=== PATIENT | female | born 1935 | race African-American/Black ===

== ENCOUNTER 2018-04-27 17:50 | Inpatient (IN) ==
[2018-04-27] MEDS ORDERED: diphenhydrAMINE CAP 25 MG CAPSULE PO PRN (20:25)
[2018-04-27] MEDS ORDERED: guaiFENesin/DM ER 600-30 MG TABLET PO PRN (20:25)
[2018-04-27] MEDS ORDERED: ONDANSETRON 4 MG/2 ML VIAL IV PRN (20:25)
[2018-04-27] MEDS ORDERED: ALBUTEROL 2.5 MG/3 ML NEB RESP TX PRN (20:25)
[2018-04-27] MEDS ORDERED: MORPHINE 4 MG/1 ML VIAL IV PRN (20:25)
[2018-04-27] MEDS ORDERED: DOCUSATE SODIUM 100 MG CAPSULE PO PRN (20:25)
[2018-04-27] MEDS ORDERED: ACETAMINOPHEN 325 MG TABLET PO PRN (20:25)
[2018-04-27] MEDS ORDERED: methylPREDNISolone SOD SUC 125 MG/2 ML VIAL IV SCH (21:00)
[2018-04-28] MEDS: SODIUM CHLORIDE 0.9% 1,000 ML IV SCH ×2 (01:03→11:17)
[2018-04-28] MEDS: MONTELUKAST 10 MG TABLET PO SCH ×2 (01:05→21:23)
[2018-04-28] MEDS: BUDESONIDE/FORMOTEROL 160-4.5 INHALER 6 GM INH SCH ×3 (01:06→21:29)
[2018-04-28 06:49] LABS: Hematocrit 28.8 VOL% (35.7-47.0); Hemoglobin 9.3 GM/DL (12.0-16.0); Immature Granulocytes % 0.3 %; Immature Granulocytes Absolute 0.01 #; Lymphocytes # 0.7 10*3/uL (1.4-4.0); Lymphocytes % 19.3 % (21.3-54.2); Mean Corpuscular HGB Conc 32.3 GM/DL (32-36); Mean Corpuscular Hemoglobin 30 PG (27-34); Mean Corpuscular Volume 94.1 FL (87-102); Monocytes % 1.1 % (1.7-12.7); Neutrophils % 79.3 % (38.7-73.9); Platelet Count 185 T/CUMM (130-400); Red Blood Count 3.06 MC/CUMM (3.8-5.5); Red Cell Distribution Width 12.9 % (9.3-17.3); White Blood Count 3.8 T/CUMM (4-12)
[2018-04-28 07:15] LABS: Lymphocytes 22 % (20-55); Platelet Estimate Normal; Segmented Neutrophils 78 % (50-85); Total Cells Counted 100
[2018-04-28 07:23] LABS: Calcium 8.6 MG/DL (8.5-10.1); Osmolality,Calculated 287.4 MOS/KG (273-304); Risk Ratio 1.74; Thyroid Stimulating Hormone 0.873 uIU/ml (0.358-3.74); VLDL CHOLESTEROL 7.2 MG/DL
[2018-04-28] MEDS ORDERED: PANTOPRAZOLE 40 MG TABLET PO SCH (09:00)
[2018-04-28] MEDS: amLODIPine 5 MG TABLET PO SCH (09:44)
[2018-04-28] MEDS: ENOXAPARIN 30 MG/0.3 ML SYRINGE SUBCUT SCH (09:44)
[2018-04-28] MEDS: methylPREDNISolone SOD SUC 125 MG/2 ML VIAL IV SCH ×4 (09:45→21:23)
[2018-04-28] MEDS ORDERED: LOSARTAN 50 MG TABLET PO SCH (10:30)
[2018-04-28] MEDS: MINOXIDIL 10 MG TABLET PO SCH (13:03)
[2018-04-28] MEDS: CARVEDILOL 12.5 MG TABLET PO SCH ×2 (13:03→21:23)
[2018-04-28] MEDS: ATORVASTATIN 20 MG TABLET PO SCH (13:03)
[2018-04-28] MEDS: PANTOPRAZOLE 40 MG TABLET PO SCH (13:04)
[2018-04-28] MEDS: amLODIPine 10 MG TABLET PO SCH (13:05)
[2018-04-29] MEDS: methylPREDNISolone SOD SUC 125 MG/2 ML VIAL IV SCH ×4 (02:48→20:12)
[2018-04-29 03:11] LABS: ABG Base Excess -7.2 MMOL/L (-2.5-2.5); ABG HCO3 18.5 MMOL/L (20-26); ABG Oxygen Saturation 97.4 % (95-100); ABG PCO2 35.6 MM HG (35-48); ABG PH 7.318 (7.35-7.45); ABG PO2 96.3 MM HG (80-95); ABG TCO2 17.1 MMOL/L (23-27); Allen Test Positive; Pt O2 Delivery Device Other
[2018-04-29 06:03] LABS: Calcium 8.1 MG/DL (8.5-10.1); Osmolality,Calculated 303.8 MOS/KG (273-304); Potassium 4.9 MMOL/L (3.5-5.1)
[2018-04-29] MEDS ORDERED: SODIUM CHLORIDE 0.9% 500 ML IV ONE (08:43)
[2018-04-29] MEDS: ATORVASTATIN 20 MG TABLET PO SCH (09:23)
[2018-04-29] MEDS: MINOXIDIL 10 MG TABLET PO SCH (09:23)
[2018-04-29] MEDS: CARVEDILOL 12.5 MG TABLET PO SCH ×2 (09:23→20:09)
[2018-04-29] MEDS: PANTOPRAZOLE 40 MG TABLET PO SCH (09:23)
[2018-04-29] MEDS: BUDESONIDE/FORMOTEROL 160-4.5 INHALER 6 GM INH SCH ×2 (09:27→21:52)
[2018-04-29] MEDS: amLODIPine 5 MG TABLET PO SCH (09:47)
[2018-04-29] MEDS: ENOXAPARIN 30 MG/0.3 ML SYRINGE SUBCUT SCH (10:06)
[2018-04-29] MEDS: amLODIPine 10 MG TABLET PO SCH (11:09)
[2018-04-29] MEDS: traMADol 50 MG TABLET PO PRN ×2 (12:17→20:09)
[2018-04-29] MEDS: miSOPROStol 200 MCG TABLET PO SCH ×3 (17:06→20:09)
[2018-04-29] MEDS: MONTELUKAST 10 MG TABLET PO SCH (20:09)
[2018-04-29] MEDS ORDERED: FAMOTIDINE 20 MG TABLET PO SCH (21:00)
[2018-04-30] MEDS: methylPREDNISolone SOD SUC 125 MG/2 ML VIAL IV SCH ×2 (02:51→09:47)
[2018-04-30 07:10] LABS: Albumin 3.3 G/DL (3.4-5.0); Calcium 7.9 MG/DL (8.5-10.1); Osmolality,Calculated 302.3 MOS/KG (273-304); Potassium 4.7 MMOL/L (3.5-5.1)
[2018-04-30 07:34] LABS: Apearance,Urine CLEAR (Clear); Bilirubin,Urine Negative (Negative); Blood, Urine Negative (Negative); Glucose,Urine (UA) Negative (Negative); Ketones,Urine Negative (Negative); Mucus,Urine Occasional /LPF (Occasional); Nitrite,Urine Negative (Negative); Protein,Urine Negative; RBC,Urine <1 /HPF (0-4); Squamous Epithelial Cell,Urine Occasional /HPF (0-10); Urine Color Straw (Yellow); Urine Specific Gravity 1.013 (1.001-1.035); Urine Urobilinogen < 2.0 EU/DL (0.2-1.0); WBC,Urine <1 /HPF (0-6)
[2018-04-30] MEDS: miSOPROStol 200 MCG TABLET PO SCH ×2 (09:47→12:25)
[2018-04-30] MEDS: ENOXAPARIN 30 MG/0.3 ML SYRINGE SUBCUT SCH (09:47)
[2018-04-30] MEDS: amLODIPine 5 MG TABLET PO SCH (09:47)
[2018-04-30] MEDS: CARVEDILOL 12.5 MG TABLET PO SCH (09:47)
[2018-04-30] MEDS: BUDESONIDE/FORMOTEROL 160-4.5 INHALER 6 GM INH SCH (09:48)
[2018-04-30 12:24] VITALS: BP 149/54
== END 2018-04-30 16:00 | disposition home or self-care (01) | DRG 202 ==
LOC: N.EDINP 17:50 → N.ED 17:50 → N.5E 22:46
PROVIDERS: ADMIT Internal Medicine; ATTEND Internal Medicine

== ENCOUNTER 2019-09-07 16:51 | Inpatient (IN) ==
[2019-09-07] MEDS ORDERED: ASPIRIN 325 MG TABLET PO STA (17:15)
[2019-09-07 18:33] LABS: Basophils % 0.1 % (0.0-0.8); Hematocrit 35.4 VOL% (35.7-47.0); Hemoglobin 11.3 GM/DL (12.0-16.0); Immature Granulocytes % 0.8 %; Immature Granulocytes Absolute 0.06 #; Lymphocytes # 2.5 10*3/uL (1.4-4.0); Lymphocytes % 31.2 % (21.3-54.2); Mean Corpuscular HGB Conc 31.9 GM/DL (32-36); Mean Corpuscular Volume 95.9 FL (87-102); Mean Platelet Volume 10.1 FL (9.6-12.0); Monocytes % 13.5 % (1.7-12.7); Neutrophils % 54.4 % (38.7-73.9); Platelet Count 193 T/CUMM (130-400); Red Blood Count 3.69 MC/CUMM (3.8-5.5); Red Cell Distribution Width 13.7 % (9.3-17.3)
[2019-09-07 18:42] LABS: INR 1.1; PT Patient Result 11.6 SECS (9.6-12.2); Partial Thromboplastin Time 27.6 SECS (20.8-36.0)
[2019-09-07 19:00] LABS: Alanine Aminotransferase 14 U/L (13-56); Albumin 3.5 G/DL (3.4-5.0); Alkaline Phosphatase 107 U/L (45-117); Aspartate Amino Transferase 32 U/L (0-37); Blood Urea Nitrogen 28 MG/DL (7-18); Calcium 9.4 MG/DL (8.5-10.1); Estimated Glom Filtration Rate 21 ML/MIN; Glucose 88 MG/DL (74-106); Osmolality,Calculated 290.8 MOS/KG (273-304); Total Protein 6.5 G/DL (6.4-8.3)
[2019-09-07 19:27] LABS: Apearance,Urine CLEAR (Clear); Bacteria,Urine Occasional /HPF (Few); Bilirubin,Urine Negative (Negative); Blood, Urine Negative (Negative); Glucose,Urine (UA) Negative (Negative); Hyaline Casts,Urine 1 /LPF (0-3); Ketones,Urine Negative (Negative); Mucus,Urine Occasional /LPF (Occasional); Nitrite,Urine Negative (Negative); Protein,Urine Negative; Urine Color Yellow (Yellow); Urine Specific Gravity 1.016 (1.001-1.035); Urine Urobilinogen < 2.0 EU/DL (0.2-1.0)
[2019-09-07 19:39] LABS: Barbiturates Screen,Urine Negative (Negative); Benzodiazepines Screen,Urine Negative (Negative); Cannabinoid Screen,Urine Negative (Negative); Opiate Screen,Urine Negative (Negative); Phencyclidine Screen,Urine Negative (Negative)
[2019-09-07] MEDS ORDERED: hydrALAZINE 20 MG/1 ML VIAL IV STA (20:06)
[2019-09-07] MEDS ORDERED: ONDANSETRON 4 MG/2 ML VIAL ONE (20:42)
[2019-09-07] MEDS ORDERED: ONDANSETRON 4 MG/2 ML VIAL IV STA (20:45)
[2019-09-08] MEDS ORDERED: DICLOFENAC 1% GEL 100 GM TUBE TOP PRN (00:45)
[2019-09-08] MEDS ORDERED: NON-FORMULARY MEDICATION (Albuterol Sulfate [Proair Hfa] 2 PUFF) INH PRN (00:45)
[2019-09-08] MEDS ORDERED: hydrALAZINE 20 MG/1 ML VIAL IV PRN (00:45)
[2019-09-08] MEDS ORDERED: ALBUTEROL 2.5 MG/3 ML NEB RESP TX PRN (00:45)
[2019-09-08] MEDS ORDERED: ONDANSETRON 4 MG/2 ML VIAL IV PRN (00:45)
[2019-09-08] MEDS ORDERED: ACETAMINOPHEN 325 MG TABLET PO PRN (00:45)
[2019-09-08] MEDS ORDERED: LINACLOTIDE 145 MCG CAPSULE PO PRN (00:45)
[2019-09-08] MEDS ORDERED: MELOXICAM 7.5 MG TABLET PO PRN (00:45)
[2019-09-08] MEDS: ATORVASTATIN 20 MG TABLET PO SCH ×2 (01:45→21:40)
[2019-09-08] MEDS: carvediloL 12.5 MG TABLET PO SCH ×4 (01:45→17:32)
[2019-09-08] MEDS: MONTELUKAST 10 MG TABLET PO SCH ×2 (01:45→21:40)
[2019-09-08] MEDS: SODIUM BICARBONATE 650 MG TABLET PO SCH ×3 (01:45→21:40)
[2019-09-08] MEDS: amLODIPine 10 MG TABLET PO SCH ×2 (01:45→21:40)
[2019-09-08] MEDS: CETIRIZINE 10 MG TABLET PO SCH ×2 (03:45→21:40)
[2019-09-08 06:27] LABS: Basophils % 0.2 % (0.0-0.8); Hematocrit 31.6 VOL% (35.7-47.0); Hemoglobin 10.2 GM/DL (12.0-16.0); Immature Granulocytes % 0.8 %; Immature Granulocytes Absolute 0.05 #; Lymphocytes # 2.3 10*3/uL (1.4-4.0); Lymphocytes % 35.9 % (21.3-54.2); Mean Corpuscular HGB Conc 32.3 GM/DL (32-36); Mean Corpuscular Volume 95.5 FL (87-102); Mean Platelet Volume 10.5 FL (9.6-12.0); Monocytes % 12.9 % (1.7-12.7); Neutrophils % 50.2 % (38.7-73.9); Platelet Count 182 T/CUMM (130-400); Red Blood Count 3.31 MC/CUMM (3.8-5.5); Red Cell Distribution Width 13.9 % (9.3-17.3); White Blood Count 6.4 T/CUMM (4-12)
[2019-09-08 07:06] LABS: Thyroid Stimulating Hormone 1.89 uIU/ml (0.358-3.74)
[2019-09-08 07:12] LABS: Calcium 9.1 MG/DL (8.5-10.1); Osmolality,Calculated 283.4 MOS/KG (273-304); Risk Ratio 3.78; VLDL CHOLESTEROL 21.8 MG/DL
[2019-09-08] MEDS: MEMANTINE 10 MG TABLET PO SCH (09:59)
[2019-09-08] MEDS: PANTOPRAZOLE 40 MG TABLET PO SCH (09:59)
[2019-09-08] MEDS: predniSONE 10 MG TABLET PO SCH (09:59)
[2019-09-08] MEDS: ASPIRIN EC 81 MG TABLET PO SCH (09:59)
[2019-09-08] MEDS: ENOXAPARIN 30 MG/0.3 ML SYRINGE SUBCUT SCH (10:00)
[2019-09-08] MEDS: BUDESONIDE/FORMOTEROL 160-4.5 INHALER 6 GM INH SCH ×2 (10:00→21:40)
[2019-09-08] MEDS: LORazepam 2 MG/1 ML VIAL IV ONE ×2 (11:24→12:24)
[2019-09-08] MEDS ORDERED: LORazepam 2 MG/1 ML VIAL IM ONE (11:53)
[2019-09-08] MEDS: LATANOPROST 0.005% OPH SOLN 2.5 ML BOTTLE BOTH EYES SCH (21:40)
[2019-09-09 08:26] LABS: Basophils % 0.1 % (0.0-0.8); Hemoglobin 11.5 GM/DL (12.0-16.0); Immature Granulocytes % 0.6 %; Immature Granulocytes Absolute 0.05 #; Lymphocytes # 2.5 10*3/uL (1.4-4.0); Lymphocytes % 32.4 % (21.3-54.2); Mean Corpuscular HGB Conc 31.9 GM/DL (32-36); Mean Corpuscular Volume 96.3 FL (87-102); Mean Platelet Volume 10.1 FL (9.6-12.0); Monocytes % 11.3 % (1.7-12.7); Neutrophils % 55.6 % (38.7-73.9); Platelet Count 213 T/CUMM (130-400); Red Blood Count 3.74 MC/CUMM (3.8-5.5); Red Cell Distribution Width 14.1 % (9.3-17.3); White Blood Count 7.8 T/CUMM (4-12)
[2019-09-09 09:05] LABS: Calcium 9.1 MG/DL (8.5-10.1); Osmolality,Calculated 287.3 MOS/KG (273-304)
[2019-09-09] MEDS: predniSONE 10 MG TABLET PO SCH (10:03)
[2019-09-09] MEDS: PANTOPRAZOLE 40 MG TABLET PO SCH (10:03)
[2019-09-09] MEDS: SODIUM BICARBONATE 650 MG TABLET PO SCH ×2 (10:03→22:27)
[2019-09-09] MEDS: carvediloL 12.5 MG TABLET PO SCH ×2 (10:03→16:41)
[2019-09-09] MEDS: BUDESONIDE/FORMOTEROL 160-4.5 INHALER 6 GM INH SCH ×2 (10:04→22:28)
[2019-09-09] MEDS: ENOXAPARIN 30 MG/0.3 ML SYRINGE SUBCUT SCH (10:04)
[2019-09-09] MEDS: MEMANTINE 10 MG TABLET PO SCH (10:04)
[2019-09-09] MEDS: ASPIRIN EC 81 MG TABLET PO SCH (10:04)
[2019-09-09] MEDS ORDERED: LORazepam 2 MG/1 ML VIAL IV PRN (21:54)
[2019-09-09] MEDS: MONTELUKAST 10 MG TABLET PO SCH (22:27)
[2019-09-09] MEDS: amLODIPine 10 MG TABLET PO SCH (22:27)
[2019-09-09] MEDS: ATORVASTATIN 20 MG TABLET PO SCH (22:27)
[2019-09-09] MEDS: LATANOPROST 0.005% OPH SOLN 2.5 ML BOTTLE BOTH EYES SCH (22:28)
[2019-09-09] MEDS: CETIRIZINE 10 MG TABLET PO SCH (22:28)
[2019-09-10 04:54] LABS: Basophils % 0.1 % (0.0-0.8); Hematocrit 32.8 VOL% (35.7-47.0); Hemoglobin 10.5 GM/DL (12.0-16.0); Immature Granulocytes % 0.6 %; Immature Granulocytes Absolute 0.05 #; Lymphocytes # 2.6 10*3/uL (1.4-4.0); Lymphocytes % 32.7 % (21.3-54.2); Mean Corpuscular Volume 95.3 FL (87-102); Mean Platelet Volume 10.7 FL (9.6-12.0); Monocytes % 9.4 % (1.7-12.7); Neutrophils % 57.2 % (38.7-73.9); Platelet Count 222 T/CUMM (130-400); Red Blood Count 3.44 MC/CUMM (3.8-5.5); Red Cell Distribution Width 14.2 % (9.3-17.3); White Blood Count 8.1 T/CUMM (4-12)
[2019-09-10 05:14] LABS: Calcium 8.9 MG/DL (8.5-10.1); Osmolality,Calculated 298.6 MOS/KG (273-304)
[2019-09-10] MEDS: ENOXAPARIN 30 MG/0.3 ML SYRINGE SUBCUT SCH (09:57)
[2019-09-10] MEDS: SODIUM BICARBONATE 650 MG TABLET PO SCH (09:57)
[2019-09-10] MEDS: predniSONE 10 MG TABLET PO SCH (09:57)
[2019-09-10] MEDS: carvediloL 12.5 MG TABLET PO SCH (09:57)
[2019-09-10] MEDS: MEMANTINE 10 MG TABLET PO SCH (09:57)
[2019-09-10] MEDS: PANTOPRAZOLE 40 MG TABLET PO SCH (09:57)
[2019-09-10] MEDS: ASPIRIN EC 81 MG TABLET PO SCH (09:57)
[2019-09-10] MEDS: BUDESONIDE/FORMOTEROL 160-4.5 INHALER 6 GM INH SCH (09:58)
[2019-09-10 11:54] VITALS: BP 160/71
== END 2019-09-10 15:45 | DRG 884 ==
LOC: N.ED 16:51 → N.EDINP 16:51 → SUATTDRO 20:44 → N.4E 21:14
PROVIDERS: ADMIT Family Medicine; ATTEND Internal Medicine

== ENCOUNTER 2019-10-20 14:59 | Observation (INO) ==
[2019-10-20 15:50] LABS: Basophils % 0.3 % (0.0-0.8); Hematocrit 35.2 VOL% (35.7-47.0); Hemoglobin 10.8 GM/DL (12.0-16.0); Immature Granulocytes % 2.6 %; Immature Granulocytes Absolute 0.31 #; Lymphocytes # 4.5 10*3/uL (1.4-4.0); Lymphocytes % 37.8 % (21.3-54.2); Mean Corpuscular HGB Conc 30.7 GM/DL (32-36); Mean Corpuscular Volume 98.1 FL (87-102); Mean Platelet Volume 10.7 FL (9.6-12.0); Monocytes % 7.3 % (1.7-12.7); Platelet Count 184 T/CUMM (130-400); Red Blood Count 3.59 MC/CUMM (3.8-5.5); Red Cell Distribution Width 14.2 % (9.3-17.3); White Blood Count 11.9 T/CUMM (4-12)
[2019-10-20] MEDS ORDERED: LABETALOL 20 MG/4 ML SYRINGE IV PRN (16:06)
[2019-10-20 16:09] LABS: Alanine Aminotransferase 20 U/L (13-56); Albumin 3.3 G/DL (3.4-5.0); Alkaline Phosphatase 89 U/L (45-117); Aspartate Amino Transferase 18 U/L (0-37); Bilirubin,Total < 0.39 MG/DL (0.2-1.0); Blood Urea Nitrogen 25 MG/DL (7-18); Calcium 8.6 MG/DL (8.5-10.1); Estimated Glom Filtration Rate 21 ML/MIN; Glucose 90 MG/DL (74-106); Osmolality,Calculated 295.4 MOS/KG (273-304); Total Protein 6.7 G/DL (6.4-8.3)
[2019-10-20] MEDS ORDERED: SODIUM CHLORIDE 0.45% 1,000 ML IV SCH (16:30)
[2019-10-20] MEDS ORDERED: ENOXAPARIN 30 MG/0.3 ML SYRINGE SUBCUT SCH (16:30)
[2019-10-20 16:45] LABS: PT Patient Result 11.1 SECS (9.6-12.2)
[2019-10-20] MEDS ORDERED: Epinephrine [Epipen] 0.3 MG IM PRN (17:56)
[2019-10-20] MEDS ORDERED: DICLOFENAC 1% GEL 100 GM TUBE TOP PRN (17:56)
[2019-10-20] MEDS ORDERED: MELOXICAM 7.5 MG TABLET PO PRN (17:56)
[2019-10-20] MEDS ORDERED: INFLUENZA VIRUS VACCINE 0.5 ML SYRINGE IM ONE (19:08)
[2019-10-20] MEDS ORDERED: CETIRIZINE 10 MG TABLET PO SCH (21:00)
[2019-10-20] MEDS ORDERED: MONTELUKAST 10 MG TABLET PO SCH (21:00)
[2019-10-20] MEDS ORDERED: MIRTAZAPINE 15 MG TABLET PO SCH (21:00)
[2019-10-20] MEDS: carvediloL 12.5 MG TABLET PO SCH (21:09)
[2019-10-20] MEDS: FUROSEMIDE 20 MG TABLET PO SCH (21:09)
[2019-10-20] MEDS: QUEtiapine 25 MG TABLET PO SCH (21:09)
[2019-10-20] MEDS ORDERED: ALBUTEROL 2.5 MG/3 ML NEB RESP TX PRN (22:10)
[2019-10-20] MEDS ORDERED: NON-FORMULARY MEDICATION (Albuterol Sulfate [Proair Hfa] 2 PUFF) INH PRN (22:10)
[2019-10-20] MEDS ORDERED: diphenhydrAMINE 50 MG/1 ML VIAL IM PRN (23:45)
[2019-10-21 07:02] LABS: Barbiturates Screen,Urine Negative (Negative); Benzodiazepines Screen,Urine Negative (Negative); Cannabinoid Screen,Urine Negative (Negative); Opiate Screen,Urine Negative (Negative); Phencyclidine Screen,Urine Negative (Negative)
[2019-10-21 07:42] LABS: Basophils % 0.4 % (0.0-0.8); Hemoglobin 10.7 GM/DL (12.0-16.0); Immature Granulocytes % 2.1 %; Immature Granulocytes Absolute 0.19 #; Lymphocytes # 2.9 10*3/uL (1.4-4.0); Lymphocytes % 31.6 % (21.3-54.2); Mean Corpuscular HGB Conc 31.5 GM/DL (32-36); Mean Corpuscular Volume 97.1 FL (87-102); Mean Platelet Volume 10.6 FL (9.6-12.0); Monocytes % 7.8 % (1.7-12.7); Neutrophils % 58.1 % (38.7-73.9); Platelet Count 163 T/CUMM (130-400); Red Cell Distribution Width 14.2 % (9.3-17.3); White Blood Count 9.2 T/CUMM (4-12)
[2019-10-21] MEDS ORDERED: predniSONE 10 MG TABLET PO SCH (08:00)
[2019-10-21 08:01] LABS: Albumin 3.1 G/DL (3.4-5.0); Bilirubin,Total 1.2 MG/DL (0.2-1.0); Calcium 8.9 MG/DL (8.5-10.1); Osmolality,Calculated 287.8 MOS/KG (273-304); Total Protein 6.3 G/DL (6.4-8.3)
[2019-10-21] MEDS: FUROSEMIDE 20 MG TABLET PO SCH (08:47)
[2019-10-21] MEDS: carvediloL 12.5 MG TABLET PO SCH (08:47)
[2019-10-21] MEDS: QUEtiapine 25 MG TABLET PO SCH (08:47)
[2019-10-21] MEDS ORDERED: SODIUM BICARBONATE 650 MG TABLET PO SCH (09:00)
[2019-10-21] MEDS ORDERED: BUDESONIDE/FORMOTEROL 160-4.5 INHALER 6 GM INH SCH (09:00)
[2019-10-21] MEDS ORDERED: ASPIRIN 325 MG TABLET PO SCH (09:00)
[2019-10-21] MEDS ORDERED: MEMANTINE 10 MG TABLET PO SCH (09:00)
[2019-10-21] MEDS ORDERED: PANTOPRAZOLE 40 MG TABLET PO SCH (09:00)
[2019-10-21 13:44] VITALS: BP 155/78
[2019-10-21] MEDS ORDERED: ATORVASTATIN 20 MG TABLET PO SCH (21:00)
[2019-10-21] MEDS ORDERED: LATANOPROST 0.005% OPH SOLN 2.5 ML BOTTLE BOTH EYES SCH (21:00)
[2019-10-21] MEDS ORDERED: amLODIPine 10 MG TABLET PO SCH (21:00)
== END 2019-10-21 14:45 | disposition home or self-care (01) ==
LOC: EDUNIT# → EDBD → N.ED 14:59 → N.EDINP 14:59 → N.4E 17:25
PROVIDERS: ADMIT Emergency Medicine; ATTEND Emergency Medicine